=== PATIENT | male | born 1950 | race Caucasian/White ===

== ENCOUNTER 2021-06-25 12:38 | Observation (INO) | payer MEDICAID, OTHER ==
[2021-06-25 13:15] LABS: #Eosinphils 0.2 10x3/uL (0.0-0.5); #Monocytes 0.6 10x3/uL (0.0-1.1); #Neutrophils 7.7 10x3/uL (1.5-8.4); %Basophils 0.3 % (0.0-2.0); %Eosinophils 1.9 % (0.0-6.0); %Lymphocytes 11.2 % (18.0-47.0); %Monocytes 6.6 % (0.0-10.0); %Neutrophils 79.5 % (40.0-75.0); Hemoglobin 14.6 g/dL (13.5-17.5); Mean Corpuscular HGB CONC 33.7 g/dL (32.0-36.0); Mean Corpuscular Hemoglobin 29.9 pg (27.0-33.0); Mean Corpuscular Volume 88.7 fl (81.2-95.1); Mean Platelet Volume 10.8 fl (7.4-10.4); Platelet Count 227 10x3/uL (150-450); RBC Distribution Width 13.3 % (11.5-14.5); Red Blood Cell (RBC) Count 4.88 10x6/uL (4.32-5.72); White Blood Cell (WBC) Count 9.7 10x3/uL (3.5-10.5)
[2021-06-25 13:34] LABS: ALT (SGPT) 57 U/L (8-55); AST (SGOT) 29 U/L (5-34); Albumin 4.5 g/dL (3.4-4.8); Alkaline Phosphatase 76 U/L (40-110); Anion Gap 16 mmol/L (10-20); BUN (Urea Nitrogen) 13 mg/dL (8.4-25.7); Bilirubin, Total 0.6 mg/dL (0.2-1.2); CK (CPK) 96 U/L (30-200); Calc. Creatinine Clearance 0 mL/min (70-130); Calcium 8.8 mg/dL (7.8-10.44); Carbon Dioxide 21 mmol/L (23-31); Chloride 104 mmol/L (98-107); Globulin 2.7 g/dL (2.4-3.5); Glucose 186 mg/dL (80-115); Lipase 52 U/L (8-78); Potassium 4.9 mmol/L (3.5-5.1); Protein, Total 7.2 g/dL (5.8-8.1); Sodium 136 mmol/L (136-145)
[2021-06-25 14:52] LABS: Magnesium 1.6 mg/dL (1.6-2.6)
[2021-06-25] MEDS ORDERED: Acetaminophen 325 MG TAB PO PRN (17:11)
[2021-06-25] MEDS ORDERED: Ondansetron PF 4 MG/2 ML Vial IVP PRN (17:11)
[2021-06-25] MEDS ORDERED: Senokot S 8.6-50 MG TAB PO PRN (17:11)
[2021-06-25] MEDS ORDERED: Bisacodyl 5 MG TAB PO PRN (17:11)
[2021-06-25 18:02] LABS: Troponin I Less than 0.010 ng/mL (< 0.028)
[2021-06-25 18:20] VITALS: BMI 41.2
[2021-06-25 18:34] LABS: SARS-CoV-2 NAA Rapid Test Not Detected (NotDetected)
[2021-06-25] MEDS ORDERED: Magnesium 2 GM/50 ML 2 GM in Premix Bag 1 BAG IVPB SCH (20:00)
[2021-06-25] MEDS: Sodium Chloride 0.9% 1,000 ML IV SCH (20:14)
[2021-06-25 21:03] LABS: Troponin I Less than 0.010 ng/mL (< 0.028)
[2021-06-25] MEDS ORDERED: Dextrose 5% in Water 1,000 ML IV PRN (21:23)
[2021-06-25] MEDS ORDERED: Dextrose 50% Abboject 50 ML SYRINGE SLOW IVP PRN (21:23)
[2021-06-25] MEDS ORDERED: Ventolin HFA Inhaler 60 PUFF INHALER INH PRN (21:35)
[2021-06-25] MEDS ORDERED: traZODone HCl 50 MG TAB PO PRN (21:40)
[2021-06-25] MEDS: HumaLOG 300 UNITS/3 ML VIAL SC PRN (21:43)
[2021-06-26 04:59] LABS: #Eosinphils 0.3 10x3/uL (0.0-0.5); #Monocytes 0.8 10x3/uL (0.0-1.1); #Neutrophils 4.2 10x3/uL (1.5-8.4); %Basophils 0.5 % (0.0-2.0); %Eosinophils 4.4 % (0.0-6.0); %Lymphocytes 27.7 % (18.0-47.0); %Monocytes 11.2 % (0.0-10.0); %Neutrophils 55.8 % (40.0-75.0); Hemoglobin 12.5 g/dL (13.5-17.5); Mean Corpuscular HGB CONC 33.5 g/dL (32.0-36.0); Mean Corpuscular Hemoglobin 30.4 pg (27.0-33.0); Mean Corpuscular Volume 90.8 fl (81.2-95.1); Mean Platelet Volume 10.8 fl (7.4-10.4); Platelet Count 203 10x3/uL (150-450); RBC Distribution Width 13.3 % (11.5-14.5); Red Blood Cell (RBC) Count 4.11 10x6/uL (4.32-5.72); White Blood Cell (WBC) Count 7.4 10x3/uL (3.5-10.5)
[2021-06-26 05:09] LABS: Phosphorus 3.7 mg/dL (2.3-4.7)
[2021-06-26 05:14] LABS: ALT (SGPT) 43 U/L (8-55); AST (SGOT) 21 U/L (5-34); Albumin 3.6 g/dL (3.4-4.8); Alkaline Phosphatase 66 U/L (40-110); Anion Gap 11 mmol/L (10-20); BUN (Urea Nitrogen) 10 mg/dL (8.4-25.7); Bilirubin, Total 0.4 mg/dL (0.2-1.2); Calc. Creatinine Clearance 149 mL/min (70-130); Calcium 8.5 mg/dL (7.8-10.44); Carbon Dioxide 25 mmol/L (23-31); Cardiac Risk 4.2 (Less than 4.5); Chloride 109 mmol/L (98-107); Cholesterol 121 mg/dl (< 200 Desired); Globulin 2.3 g/dL (2.4-3.5); Glucose 122 mg/dL (80-115); HDL Cholesterol 29 mg/dL (>60 Neg Risk); LDL Cholesterol, Calculated 79 mg/dL; Magnesium 1.9 mg/dL (1.6-2.6); Potassium 4.3 mmol/L (3.5-5.1); Protein, Total 5.9 g/dL (5.8-8.1); Sodium 141 mmol/L (136-145); Triglycerides 65 mg/dL (Less than 150)
[2021-06-26] MEDS: Sodium Chloride 0.9% 1,000 ML IV SCH (06:04)
[2021-06-26] MEDS ORDERED: Aspirin 81 mg Enteric Coated Tablet PO SCH ×2 (09:00→09:45)
[2021-06-26] MEDS ORDERED: Loratadine 10 MG TAB PO PRN (09:41)
[2021-06-26] MEDS ORDERED: traZODone HCl 50 MG TAB PO PRN (09:41)
[2021-06-26 10:08] LABS: Bilirubin Neg (Negative); Blood, Urine Negative (Negative); Clarity Clear (Clear); Glucose, Urine (Dipstick) >=1000 mg/dL (Negative); Ketone, Urine Negative (Negative); Leukocyte Negative (Negative); Nitrite Negative (Negative); Protein, Urine (Dipstick) Negative (Neg-Trace); Urobilinogen Normal mg/dL (Less than 2)
[2021-06-26] MEDS ORDERED: Cyclobenzaprine 10 MG TAB PO PRN (10:08)
[2021-06-26 10:47] LABS: Urine Culture Reflex No No
[2021-06-26 10:58] LABS: Bacteria/HPF None Seen HPF (None Seen); RBC/HPF 0-3 HPF (0-3); Squamous Epithelial 0-3 HPF (0-3); WBC/HPF 0-3 HPF (0-3)
[2021-06-26] MEDS ORDERED: Clopidogrel Bisulfate 75 MG TAB PO SCH (11:00)
[2021-06-26] MEDS ORDERED: metFORMIN 500 MG TAB PO SCH ×2 (11:00→21:00)
[2021-06-26] MEDS: HumaLOG 300 UNITS/3 ML VIAL SC PRN (12:36)
[2021-06-26] MEDS: Polyvinyl Alcohol 1.4%/Povidone 0.6% Opth Drops EA EYE SCH ×2 (13:46→16:19)
[2021-06-26 17:58] VITALS: BP 142/72; TEMP 97.5
[2021-06-26] MEDS ORDERED: Mometasone/Formoterol 200/5 60 PUFF INH SCH (18:30)
[2021-06-26] MEDS ORDERED: Tamsulosin HCl 0.4 MG CAP PO SCH (21:00)
[2021-06-27] MEDS ORDERED: Cholecalciferol 1,000 UNITS (25 MCG) TAB PO SCH (09:00)
[2021-06-27] MEDS ORDERED: Aspirin 81 mg Enteric Coated Tablet PO SCH (09:00)
[2021-06-27] MEDS ORDERED: Clopidogrel Bisulfate 75 MG TAB PO SCH (09:00)
[2021-06-27] MEDS ORDERED: Atorvastatin Calcium 40 MG TAB PO SCH (09:00)
[2021-06-27] MEDS ORDERED: Magnesium Oxide 400 MG TAB PO SCH (09:00)
== END 2021-06-26 18:20 | disposition home or self-care (01) ==
LOC: SUATTDRO 12:38 → CSHERS 12:38 → CSHTELE 18:17
PROVIDERS: ADMIT Family Medicine; ATTEND Family Medicine
DX: I95.1 Orthostatic hypotension (principal); I10 Essential (primary) hypertension; I25.10 Atherosclerotic heart disease of native coronary artery without angina pectoris; E11.9 Type 2 diabetes mellitus without complications; G47.33 Obstructive sleep apnea (adult) (pediatric); Z86.73 Personal history of transient ischemic attack (TIA), and cerebral infarction without residual deficits; J44.9 Chronic obstructive pulmonary disease, unspecified; N40.0 Benign prostatic hyperplasia without lower urinary tract symptoms; E55.9 Vitamin D deficiency, unspecified; G47.00 Insomnia, unspecified; Z79.899 Other long term (current) drug therapy; Z79.82 Long term (current) use of aspirin; Z79.84 Long term (current) use of oral hypoglycemic drugs; Z95.5 Presence of coronary angioplasty implant and graft
CPT/HCPCS: 36415; 36416; 71045; 80053; 80061; 81001; 82550; 83690; 83735; 83880; 84100; 84443; 84484; 85025; 93005; G0378; J1815; J3475; J7050; U0002

== ENCOUNTER 2024-09-11 15:13 | Emergency (ER) | payer OTHER ==
[2024-09-11] MEDS ORDERED: Dexamethasone 10 MG/ML VIAL ONE (16:06)
== END 2024-09-11 16:15 | disposition home or self-care (01) ==
LOC: CSHERS 15:13
DX: K13.79 Other lesions of oral mucosa (principal); I11.0 Hypertensive heart disease with heart failure; I50.9 Heart failure, unspecified; E11.9 Type 2 diabetes mellitus without complications; R54 Age-related physical debility
CPT/HCPCS: 99283; J1100